=== PATIENT | female | born 1965 | race African-American/Black ===

== ENCOUNTER 2022-08-06 08:50 | Outpatient (CLI) | payer OTHER ==
[2022-08-06 11:02] LABS: #Eosinphils 0.2 10x3/uL (0.0-0.5); #Monocytes 0.3 10x3/uL (0.0-1.1); #Neutrophils 2.4 10x3/uL (1.5-8.4); %Basophils 0.4 % (0.0-2.0); %Eosinophils 4.6 % (0.0-6.0); %Lymphocytes 34.8 % (18.0-47.0); %Monocytes 5.9 % (0.0-10.0); %Neutrophils 53.9 % (40.0-75.0); Mean Corpuscular HGB CONC 31.3 g/dL (32.0-36.0); Mean Platelet Volume 11.6 fl (7.4-10.4); Platelet Count 260 10x3/uL (150-450); RBC Distribution Width 13.3 % (11.5-14.5); Red Blood Cell (RBC) Count 4.23 10x6/uL (3.90-5.03); White Blood Cell (WBC) Count 4.5 10x3/uL (3.5-10.5)
[2022-08-06 11:17] LABS: ALT (SGPT) 15 U/L (8-55); AST (SGOT) 17 U/L (5-34); Albumin 4.1 g/dL (3.5-5.0); Alkaline Phosphatase 80 U/L (40-110); Anion Gap 17 mmol/L (10-20); BUN (Urea Nitrogen) 21 mg/dL (9.8-20.1); Bilirubin, Total 0.3 mg/dL (0.2-1.2); Calc. Creatinine Clearance 0 mL/min (70-130); Calcium 9.4 mg/dL (7.8-10.44); Carbon Dioxide 23 mmol/L (22-29); Chloride 102 mmol/L (98-107); Estimated GFR 63; Globulin 3.3 g/dL (2.4-3.5); Protein, Total 7.4 g/dL (6.0-8.3); Sodium 138 mmol/L (136-145)
[2022-08-06 11:37] LABS: Glucose 484 mg/dL (70-105)
== END 2022-08-06 08:51 | disposition home or self-care (01) ==
LOC: LABBT 08:50
DX: Z01.818 Encounter for other preprocedural examination (principal); K80.20 Calculus of gallbladder without cholecystitis without obstruction
CPT/HCPCS: 80053; 85025; 93005; 93010

== ENCOUNTER 2022-08-11 06:17 | Day surgery (SDC) | payer OTHER ==
[2022-08-10 10:12] VITALS: BMI 32.4
[2022-08-11] MEDS ORDERED: CEFAZOLIN 2 GM VIAL ONE (07:44)
[2022-08-11] MEDS ORDERED: Ketorolac Tromethamine 30 MG/ML VIAL ONE (07:44)
[2022-08-11] MEDS ORDERED: Sodium Chloride 0.9% 100 ML ONE (07:44)
[2022-08-11] MEDS ORDERED: Acetaminophen 500 MG TAB ONE (07:45)
[2022-08-11] MEDS ORDERED: Lidocaine 1% MPF 2 ML VIAL ONE (07:45)
[2022-08-11] MEDS ORDERED: Bupivacaine/Epinephrine 0.25% 30 ML VIAL ONE (08:04)
[2022-08-11] MEDS ORDERED: fentaNYL PF 100 MCG/2 ML SYRINGE ONE (08:47)
[2022-08-11] MEDS ORDERED: Rocuronium Bromide 10 MG/ML (10ML VIAL) ONE (09:24)
[2022-08-11] MEDS ORDERED: NEOSTIGMINE 3 MG/3 ML SYR 3 MG/3 ML SYRINGE ONE (09:24)
[2022-08-11] MEDS ORDERED: Ondansetron PF 4 MG/2 ML Vial ONE (09:24)
[2022-08-11] MEDS ORDERED: GLYCOPYRROLATE/PF 0.2 MG/ML VIAL ONE (09:24)
[2022-08-11] MEDS ORDERED: Dexamethasone 20 MG/5 ML VIAL ONE (09:24)
[2022-08-11] MEDS ORDERED: Lidocaine 1% PF 5 ML VIAL ONE (09:24)
[2022-08-11] MEDS ORDERED: PROPOFOL 200 MG/20 ML VIAL ONE (09:24)
[2022-08-11] MEDS ORDERED: Phenylephrine 10 MG/ML VIAL ONE (09:24)
[2022-08-11] MEDS ORDERED: fentaNYL 50 mcg/mL 1 mL Vial ONE ×2 (10:43→10:53)
== END 2022-08-11 13:15 | disposition home or self-care (01) ==
LOC: SDC 06:17
PROVIDERS: ATTEND Specialist
PROC: 0FT44ZZ Resection of Gallbladder, Percutaneous Endoscopic Approach (ICD-10-PCS; principal; 2022-08-11)
DX: K80.10 Calculus of gallbladder with chronic cholecystitis without obstruction (principal); I12.9 Hypertensive chronic kidney disease with stage 1 through stage 4 chronic kidney disease, or unspecified chronic kidney disease; E11.22 Type 2 diabetes mellitus with diabetic chronic kidney disease; N18.9 Chronic kidney disease, unspecified; E78.00 Pure hypercholesterolemia, unspecified; E66.9 Obesity, unspecified; Z68.32 Body mass index [BMI] 32.0-32.9, adult; Z87.891 Personal history of nicotine dependence; Z79.4 Long term (current) use of insulin; Z79.84 Long term (current) use of oral hypoglycemic drugs; Z79.82 Long term (current) use of aspirin; Z79.899 Other long term (current) drug therapy
CPT/HCPCS: 36416; 88304; C1889; J1100; J1885; J2370; J2405; J2704; J3010; J3490